=== PATIENT | female | born 1970 | race African-American/Black ===

== ENCOUNTER 2024-08-10 09:49 | Outpatient (CLI) | payer MEDICARE, OTHER | END 2024-08-10 09:50 | disposition home or self-care (01) | LOC: BICMAMMO 09:49 | PROVIDERS: ATTEND Physician Assistant | DX: R92.8 Other abnormal and inconclusive findings on diagnostic imaging of breast (principal); N64.89 Other specified disorders of breast | CPT/HCPCS: 76642; 77065; G0279 ==